=== PATIENT | female | born 1990 | race Caucasian/White ===

== ENCOUNTER 2016-08-09 16:42 | Emergency (ER) | payer MEDICAID ==
[2016-08-09 17:03] VITALS: BMI 31.9
[2016-08-09 17:09] VITALS: BP 111/75; PULSE 92; RESP 18; TEMP 98.1; O2SAT 98
--- NOTE | 2016-08-09 17:55 | ED PDOC ---
Arrival/HPI - General Chief Complaint: Back Pain Time Seen by Provider: 08/09/16 17:00 Historian: Patient - History of Present Illness Time/Duration: Other (2 weeks) Symptom Onset: Gradual Symptom Course: Intermittent Quality: Aching Severity Level: Mild Activities at Onset: Rest Associated Symptoms (Text): 08/09/16 17:53 Patient complains of approximately a two-week history of intermittent right lower back pain. There is no radiation of the pain. No injury or trauma. She is currently completely fine. No abdominal pain nausea vomiting or diarrhea. No dysuria frequency urgency or hematuria. LMP is approximately 2 months ago on June 03. She states that her menstrual cycle is very irregular normally. No numbness tingling or paresthesias. She appears comfortable and in no distress. Appendectomy approximately 3 months ago. Past Medical History - Provider Review Nursing Documentation Reviewed: Yes - Travel History If Yes, travel location?: [facility] - Past History Past History: Non-Contributing - Infectious Disease Hx of Infectious Diseases: None - Cardiac Hx Cardiac Disorders: No Hx Internal Defibrillator: No - Pulmonary Hx Respiratory Disorders: No - Neurological Hx Neurological Disorder: No - HEENT Hx HEENT Disorder: No - Renal Hx Renal Disorder: No - Endocrine/Metabolic Hx Endocrine Disorders: No - Hematological/Oncological Hx Blood Transfusions: No - Integumentary Hx Dermatological Disorder: No - Musculoskeletal/Rheumatological Hx Musculoskeletal Disorders: No Hx Falls: No - Gastrointestinal Hx Gastrointestinal Disorders: No - Genitourinary/Gynecological Hx Sexually Transmitted Diseases: Yes (summer 2015, treated with Abiotics) - Psychiatric Hx Psychophysiologic Disorder: No Hx Substance Use: No - Surgical History Hx Appendectomy: Yes Hx Tonsillectomy: Yes Other/Comment: 1 vaginal - Anesthesia Hx Anesthesia: Yes Hx Anesthesia Reactions: No - Suicidal Assessment Feels Threatened In Home Enviroment: No Family/Social History - Physician Review Nursing Documentation Reviewed: Yes Family/Social History: No Known Family HX, Unknown Family HX Smoking Status: Never Smoked Hx Alcohol Use: Yes (SOCIALLY) Frequency of alcohol use: Socially Hx Substance Use: No Allergies/Home Meds Allergies/Adverse Reactions: Allergies No Known Allergies Allergy (Verified 08/09/16 17:03) Review of Systems - Physician Review All systems were reviewed & negative as marked: Yes - Review of Systems Constitutional: Normal Respiratory: Normal Cardiovascular: Normal Gastrointestinal: Normal Genitourinary Female: Normal Musculoskeletal: Back Pain. absent: Neck Pain Neurological: absent: Headache, Dizziness Physical Exam Vital Signs Reviewed: Yes Vital Signs Temp Pulse Resp BP Pulse Ox 08/09/16 17:07 98.1 F 92 H 18 111/75 98 Temperature: Afebrile Blood Pressure: Normal Pulse: Regular Respiratory Rate: Normal Appearance: Positive for: Well-Appearing, Non-Toxic, Comfortable Pain Distress: None Mental Status: Positive for: Alert and Oriented X 3 - Systems Exam Head: Present: Atraumatic, Normocephalic Pupils: Present: PERRL Extroacular Muscles: Present: EOMI Conjunctiva: Present: Normal Respiratory/Chest: Present: Clear to Auscultation, Good Air Exchange. No: Respiratory Distress, Accessory Muscle Use Cardiovascular: Present: Regular Rate and Rhythm, Normal S1, S2. No: Murmurs Abdomen: Present: Normal Bowel Sounds. No: Tenderness, Distention, Peritoneal Signs, Rebound, Guarding Back: Present: Normal Inspection. No: CVA Tenderness, Midline Tenderness, Paraspinal Tenderness, Pain with Leg Raise Lower Extremity: Present: Normal Inspection. No: Edema, CALF TENDERNESS, NORMAL PULSES, Tenderness, Swelling Neurological: Present: GCS=15, CN II-XII Intact, Speech Normal, Motor Func Grossly Intact Skin: Present: Warm, Dry, Normal Color. No: Rashes Medical Decision Making ED Course and Treatment: 08/09/16 18:03 Impression: A 26 year old female with right lower back pain. Plan: -- Urinalysis -- Reassess and disposition Prior Visits: Notes and results from previous visits were reviewed. Patient last reported to the emergency department on 04/24/16 for evaluation of diffuse abdominal pain. Patient was admitted for abdominal pain and leukocytosis. Progress Notes: 08/09/16 19:14 Urinalysis and urine test are negative.Patient has been holding her baby on her right hip. I suggested that she alternate hips and see if this does not help her back pain. - Lab Interpretations Lab Results: Lab Results 08/09/16 18:00: Urine Color Yellow, Urine Appearance Clear, Urine pH 6.5, Ur Specific [place] 1.025, Urine Protein Negative, Urine Glucose (UA) Negative, Urine Ketones Negative, Urine Blood Negative, Urine Nitrate Negative, Urine Bilirubin Negative, Urine Urobilinogen 0.2, Ur Leukocyte Esterase Trace H, Urine RBC 0 - 2, Urine WBC 0 - 2, Ur Epithelial Cells 1 - 3, Calcium Oxalate Crystal Trace, Urine Bacteria Mod, Urine HCG, Qual Negative - Scribe Statement The provider has reviewed the documentation as recorded by the Bev Mullins Provider Scribe Attestation: All medical record entries made by the Scribe were at my direction and personally dictated by me. I have reviewed the chart and agree that the record accurately reflects my personal performance of the history, physical exam, medical decision making, and the department course for this patient. I have also personally directed, reviewed, and agree with the discharge instructions and disposition. Disposition/Present on Arrival - Present on Arrival Any Indicators Present on Arrival: No History of DVT/PE: No History of Uncontrolled Diabetes: No Urinary Catheter: No History of Decub. Ulcer: No History Surgical Site Infection Following: None - Disposition Have Diagnosis and Disposition been Completed?: Yes Diagnosis: Low back pain Disposition: HOME/ ROUTINE Disposition Time: 19:15 Patient Plan: Discharge Condition: GOOD Discharge Instructions (ExitCare): Acute Low Back Pain (ED) Additional Instructions: Tylenol or Advil as directed on bottle as needed. Follow-up with your PMD. Follow-up in the ER as needed. Referrals: Lelo Holman, [Primary Care Provider] - Follow up with primary
[2016-08-09 18:32] LABS: PH,URINE 6.5 (4.7-8.0); URINE BILIRUBIN NEGATIVE (NEGATIVE); URINE BLOOD NEGATIVE (NEGATIVE); URINE GLUCOSE (UA) NEGATIVE (NEGATIVE); URINE KETONE NEGATIVE (NEGATIVE); URINE LEUKOCYTE ESTERASE TRACE Leu/uL (NEGATIVE); URINE PROTEIN NEGATIVE mg/dL (<30 mg/dL); URINE UROBILINOGEN 0.2 E.U./dL (<1 E.U./dL)
[2016-08-09 18:41] LABS: URINE APPEARANCE CLEAR (CLEAR); URINE COLOR YELLOW (YELLOW)
[2016-08-09 19:09] LABS: URINE BACTERIA MOD (NEG); URINE CALCIUM OXALATE CRYSTALS TRACE /hpf; URINE RBC 0 - 2 /hpf (0-2); URINE WBC 0 - 2 /hpf (0-6)
== END 2016-08-09 19:29 | disposition home or self-care (01) ==
LOC: ED 16:42
DX: M54.5 Low back pain (principal)

== ENCOUNTER 2018-01-26 10:48 | Inpatient (IN) | payer OTHER ==
[2018-01-27] MEDS ORDERED: HYDROmorphone 1 mg/ml PCA 30 ML IV PRN (13:01)
[2018-01-27] MEDS: HYDROmorphone 0.2 mg/ml (30ml) 30 ML IV PRN (13:44)
--- NOTE | 2018-01-27 14:36 | CP.PCM.CON ---
History of Present Illness - History of Present Illness History of Present Illness: Palliative consult requested by Dr eBryl Lee Reason: End of life care 27 year old female with history of widely metastatic pancreatic cancer s/p chemotherapy, pleural effusions, DVT , ascites s/p Tenckoff drain, sepsis who is admitted under [facility] for pain and symptom management. She complains of abdominal /back pain, abdominal distention, nausea, constipation, anorexia. She denies fever, chills, vomiting, diarrhea, chest pain. She is DNR/DNI Social History: Non smoker, no alcohol or drug use. She lives with her mother. She has a two year old daughter. Family History of colon cancer on paternal aunt Review of Systems: As per HPI, 12 point review otherwise negative Past Patient History - Infectious Disease Hx of Infectious Diseases: None - Past Medical History & Family History Past Medical History?: Yes - Past Social History Smoking Status: Never Smoked - CARDIAC Hx Cardiac Disorders: No Hx Internal Defibrillator: No - PULMONARY Hx Respiratory Disorders: No - NEUROLOGICAL Hx Neurological Disorder: No - HEENT Hx HEENT Problems: No - RENAL Hx Chronic Kidney Disease: No - ENDOCRINE/METABOLIC Hx Endocrine Disorders: No - HEMATOLOGICAL/ONCOLOGICAL Hx Blood Transfusions: No - INTEGUMENTARY Hx Dermatological Problems: No - MUSCULOSKELETAL/RHEUMATOLOGICAL Hx Musculoskeletal Disorders: No Hx Falls: No - GASTROINTESTINAL Hx Gastrointestinal Disorders: No - GENITOURINARY/GYNECOLOGICAL Hx Sexually Transmitted Disorders: Yes (summer 2015, treated with Abiotics) - PSYCHIATRIC Hx Psychophysiologic Disorder: No Hx Substance Use: No - SURGICAL HISTORY Hx Appendectomy: Yes Hx Tonsillectomy: Yes Other/Comment: 1 vaginal - ANESTHESIA Hx Anesthesia: Yes Hx Anesthesia Reactions: No Meds Allergies/Adverse Reactions: Allergies Allergy/AdvReac Type Severity Reaction Status Date / Time No Known Allergies Allergy Verified 08/09/16 17:03 - Medications Medications: Current Medications Acetaminophen (Tylenol 650 Mg Supp) 650 mg RC Q4H PRN PRN Reason: Fever >100.4 F Bisacodyl (Dulcolax) 10 mg RC DAILY [facility] Dexamethasone (Decadron Inj) 4 mg IVP DAILY [facility] Hydromorphone HCl (Dilaudid 0.2 Mg/Ml [employer]) 30 mls @ 2.5 mls/hr IV PRN PRN; Protocol PRN Reason: VISUAL MERCHANDISE MANAGER PER MD ORDER Last Admin: 01/27/18 13:44 Dose: 2.5 mls/hr Lactulose (Enulose) 10 gm PO DAILY PRN PRN Reason: Constipation Lorazepam (Ativan) 0.25 mg IVP Q6H PRN; Protocol PRN Reason: Anxiety Olanzapine (Zyprexa) 5 mg PO DAILY [facility]; Protocol Stop: 02/03/18 21:00 Ondansetron HCl (Zofran Inj) 8 mg IVP Q8H PRN PRN Reason: Nausea/Vomiting Pantoprazole Sodium (Protonix Inj) 40 mg IVP DAILY [facility] Physical Exam - Constitutional Appears: Cachectic, Chronically Ill - Eye Exam Eye Exam: Normal appearance, Scleral icterus - ENT Exam ENT Exam: Mucous Membranes Moist - Neck Exam Neck exam: Positive for: Normal Inspection - Respiratory Exam Respiratory Exam: Decreased Breath Sounds, NORMAL BREATHING PATTERN - Cardiovascular Exam Cardiovascular Exam: Tachycardia, +S1, +S2 - GI/Abdominal Exam GI & Abdominal Exam: Distended, Firm, Hypoactive Bowel Sounds, Tenderness Additional comments: right lower abdominal drain patent and intact, left sided lower abdomen wound dr barriga intact - Exam Additional comments: torres - Extremities Exam Additional comments: 2+ edema of both lower extremities - Back Exam Back exam: NORMAL INSPECTION - Neurological Exam Neurological exam: Alert - Skin Skin Exam: Dry, Pallor - Additional Findings Additional findings: palliative performance scale rating 20% Assessment & Plan - Assessment and Plan (Free Text) Assessment: 27 year old female with metastatic pancreatic cancer, ascites, pleural effusions, who is admitted under [facility] for management of intractable abdominal/back, nausea, ascites and constipation Father and mother at bedside. Lengthy discussion with father regarding end of life care. Family understands that patient is terminally ill and is appreciative of teams effort to provide pain and symptom management. Hospice services reviewed, questions answered. Psychosocial support provided Time spent with family in goals of care and end of life discussion, 60 minutes Plan: Goals of care/End of life care Pain: Dilaudid continuos IV 0.5mg/hr and VISUAL MERCHANDISE MANAGER 0.25 mg every 30 minutes. Decadron 4 mg daily IVP. Discontinue Fentanyl patch. Anxiety/agitation: Ativan 025mg as needed Ascites: Drain Tenckoff every other day Constipation: Lactulose daily, Dulcolax RC as needed. Nausea: Zofran 8mg IVP every 8 hr as needed Respiratory congestion: Duonebs tid and prn, O2 as needed Air mattress Soft diet as tolerated
[2018-01-27 14:49] VITALS: BMI 33.2
[2018-01-27] MEDS ORDERED: Albuterol-Ipratrop 3 mg / 0.5 (3 ml) UD IH PRN (15:01)
--- NOTE | 2018-01-27 17:19 | CP.PCM.HP ---
<Ophelia Montano - Last Filed: 01/28/18 06:23> History of Present Illness - History of Present Illness History of Present Illness: Resident Ophelia Montano DO PGY-1 H&P Hospitalist Note for Dr. Lee Pt is a 27 yo F with pmhx metastatic pancreatic cancer to the liver, dx 10/2017, s/p biliary stent placement who presents to the hospital for hospice care. She is currently stating that she is having some nausea, but is denying chest pain, cough, SOB, abdominal pain or dysuria. She states that she is feeling weak and tired and just wants to rest. Pmhx: metastatic pancreatic cancer to the liver, dx 10/2017, s/p biliary stent placement Pshx: Appendectomy All: NKDA Social: Denies Fam: Denies Present on Admission - Present on Admission Any Indicators Present on Admission: No Review of Systems - Review of Systems All systems: reviewed and no additional remarkable complaints except Review of Systems: 12 point ROS negative except as indicated in HPI Past Patient History - Infectious Disease Hx of Infectious Diseases: None - Past Medical History & Family History Past Medical History?: Yes - Past Social History Smoking Status: Never Smoked - CARDIAC Hx Cardiac Disorders: No Hx Internal Defibrillator: No - PULMONARY Hx Respiratory Disorders: No - NEUROLOGICAL Hx Neurological Disorder: No - HEENT Hx HEENT Problems: No - RENAL Hx Chronic Kidney Disease: No - ENDOCRINE/METABOLIC Hx Endocrine Disorders: No - HEMATOLOGICAL/ONCOLOGICAL Hx Blood Transfusions: No - INTEGUMENTARY Hx Dermatological Problems: No - MUSCULOSKELETAL/RHEUMATOLOGICAL Hx Musculoskeletal Disorders: No Hx Falls: No - GASTROINTESTINAL Hx Gastrointestinal Disorders: No - GENITOURINARY/GYNECOLOGICAL Hx Sexually Transmitted Disorders: Yes (summer 2015, treated with Abiotics) - PSYCHIATRIC Hx Psychophysiologic Disorder: No Hx Substance Use: No - SURGICAL HISTORY Hx Appendectomy: Yes Hx Tonsillectomy: Yes Other/Comment: 1 vaginal - ANESTHESIA Hx Anesthesia: Yes Hx Anesthesia Reactions: No Meds Allergies/Adverse Reactions: Allergies Allergy/AdvReac Type Severity Reaction Status Date / Time No Known Allergies Allergy Verified 08/09/16 17:03 Physical Exam - Constitutional Appears: Cachectic, Other (Pt looks fatigued, but is conversant and answers questions appropriately.) - Head Exam Head Exam: ATRAUMATIC, NORMAL INSPECTION, NORMOCEPHALIC - Respiratory Exam Respiratory Exam: Decreased Breath Sounds, NORMAL BREATHING PATTERN. absent: Rales, Rhonchi, Wheezes, Respiratory Distress, Stridor - Cardiovascular Exam Cardiovascular Exam: Tachycardia, +S1, +S2. absent: Gallop, Rubs - GI/Abdominal Exam GI & Abdominal Exam: Firm, Hypoactive Bowel Sounds. absent: Tenderness - Extremities Exam Extremities exam: Positive for: full ROM, normal capillary refill, normal inspection, pedal pulses present. Negative for: calf tenderness, pedal edema - Back Exam Back exam: NORMAL INSPECTION. absent: CVA tenderness (L), CVA tenderness (R) - Neurological Exam Neurological exam: Alert, Oriented x3 - Psychiatric Exam Additional comments: Tired and weak - Skin Skin Exam: Dry, Intact, Normal Color, Warm Results - Vital Signs Recent Vital Signs: Last Vital Signs Temp 98.9 F 01/27/18 14:16 Pulse 109 H 01/27/18 14:16 Resp 22 01/27/18 14:16 BP 101/69 01/27/18 14:16 Pulse Ox Assessment & Plan - Assessment and Plan (Free Text) Assessment: Pt is a 27 yo F with pmhx metastatic pancreatic cancer to the liver, dx 10/2017, s/p biliary stent placement who presents to the hospital for hospice care. Plan: 1) Comfort care measures: - Hospice care consulted and will follow their recs <Juan Miguel Lee - Last Filed: 01/28/18 17:01> Results - Vital Signs Recent Vital Signs: Last Vital Signs Temp 99.3 F 01/28/18 16:34 Pulse 125 H 01/28/18 16:34 Resp 21 01/28/18 16:34 BP 101/67 01/28/18 16:34 Pulse Ox 100 01/28/18 16:34 Attending/Attestation - Attestation I have personally seen and examined this patient.: Yes I have fully participated in the care of the patient.: Yes I have reviewed all pertinent clinical information: Yes Notes (Text): 01/28/18 16:55 Attending note; Patient seen and examined with resident. Patient's father by the bedside. Patient is alert and awake. In mild distress due to pain. Palliative care nurse by the bedside. Compassionate By the bedside. Patient is a27 year old female with pmhx metastatic pancreatic cancer to the liver, dx 10/2017, s/p biliary stent placement who presents to the hospital for hospice care. Patient was transferred from [facility] today for hospice care under compassionate care. Patient was recently diagnosed metastatic pancreatic cancer. Had first line and second line chemotherapy. Patient also had biliary stent. Patient has recurrent ascites and currently has a Tankoff catheter for ascites fluid drainage. we will drain the ascitic fluid twice daily for patient's comfort to decrease abdominal distention. Pain management with Dilaudid SAILMAKER. Continue Colace and MiraLAX as needed for constipation. Ativan when necessary for anxiety. GI prophylaxis with Protonix. Diet as tolerated. Patient is DNI DNR. Poor prognosis discussed with patient's father in detail. Patient and family aware of poor prognosis. Currently on hospice care. 01/28/18 16:59
[2018-01-27] MEDS ORDERED: Albuterol-Ipratrop 3 mg / 0.5 (3 ml) UD IH SCH (20:00)
[2018-01-27] MEDS: Albuterol-Ipratrop 3 mg / 0.5 (3 ml) UD IH SCH (20:03)
[2018-01-28] MEDS: HYDROmorphone 0.2 mg/ml (30ml) 30 ML IV PRN ×3 (00:18→20:42)
[2018-01-28] MEDS: Albuterol-Ipratrop 3 mg / 0.5 (3 ml) UD IH SCH ×6 (02:09→20:13)
[2018-01-28] MEDS ORDERED: POLYETHYLENE GLYCOL 3350 17 GM/Dose PACKET PO SCH (10:00)
[2018-01-28] MEDS: Dexamethasone 4 mg/1 ml IVP SCH (10:55)
[2018-01-28] MEDS ORDERED: guaiFENesin 200 mg/10 ml Syrup UD PO PRN (11:33)
--- NOTE | 2018-01-28 16:06 | CP.PCM.PN ---
<Ophelia Montano - Last Filed: 01/28/18 16:02> Subjective - Date & Time of Evaluation Date of Evaluation: 01/28/18 Time of Evaluation: 16:02 - Subjective Subjective: Resident Ophelia Montano DO PGY-1 Hospitalist Progress Note for Dr. Lee Pt was seen and examined at bedside in the AM. She continues to appear fatigued. She states that she had no acute overnight events, but is having some pain. She denies having fevers, chills, nausea, vomiting, or chest pain. She admits to a bit of SOB or cough which she states is normal for her, though she did not have those issues yesterday. She denies any other acute complaints at this time. Objective - Vital Signs/Intake and Output Vital Signs (last 24 hours): Temp Pulse Resp BP Pulse Ox 98.9 F 109 H 22 101/69 01/27/18 14:16 01/27/18 14:16 01/27/18 14:16 01/27/18 14:16 Intake and Output: 01/28/18 01/28/18 06:59 18:59 Intake Total 30 30 Output Total 300 Balance -270 30 - Medications Medications: Current Medications Acetaminophen (Tylenol 650 Mg Supp) 650 mg RC Q4H PRN PRN Reason: Fever >100.4 F Albuterol/Ipratropium (Duoneb 3 Mg/0.5 Mg (3 Ml) Ud) 3 ml IH [id number] [facility] Last Admin: 01/28/18 15:44 Dose: 3 ml Albuterol/Ipratropium (Duoneb 3 Mg/0.5 Mg (3 Ml) Ud) 3 ml IH TIDRESP PRN PRN Reason: Cough and congestion Bisacodyl (Dulcolax) 10 mg RC DAILY [facility] Last Admin: 01/28/18 11:09 Dose: Not Given Dexamethasone (Decadron Inj) 4 mg IVP DAILY [facility] Last Admin: 01/28/18 10:55 Dose: 4 mg Guaifenesin (Robitussin) 200 mg PO Q4H PRN PRN Reason: Cough and congestion Hydromorphone HCl (Dilaudid 0.2 Mg/Ml [employer]) 30 mls @ 2.5 mls/hr IV PRN PRN; Protocol PRN Reason: FUSE MAKER PER MD ORDER Last Admin: 01/28/18 11:51 Dose: 2.5 mls/hr Lactulose (Enulose) 10 gm PO DAILY PRN PRN Reason: Constipation Last Admin: 01/28/18 11:14 Dose: 10 gm Lorazepam (Ativan) 0.25 mg IVP Q6H PRN; Protocol PRN Reason: Anxiety Olanzapine (Zyprexa) 5 mg PO DAILY [facility]; Protocol Stop: 02/03/18 21:00 Last Admin: 01/28/18 10:56 Dose: 5 mg Ondansetron HCl (Zofran Inj) 8 mg IVP Q8H PRN PRN Reason: Nausea/Vomiting Last Admin: 01/28/18 07:41 Dose: 8 mg Pantoprazole Sodium (Protonix Inj) 40 mg IVP DAILY [facility] Last Admin: 01/28/18 10:55 Dose: 40 mg - Constitutional Appears: Cachectic, Chronically Ill, Other (Fatigued) - Head Exam Head Exam: ATRAUMATIC, NORMAL INSPECTION, NORMOCEPHALIC - Eye Exam Eye Exam: EOMI, Normal appearance Pupil Exam: NORMAL ACCOMODATION - Respiratory Exam Respiratory Exam: Decreased Breath Sounds. absent: Accessory Muscle Use, Chest Wall Tenderness, Prolonged Expiratory Phase, Rhonchi, Wheezes, Respiratory Distress, Stridor - Cardiovascular Exam Cardiovascular Exam: RRR, +S1, +S2. absent: Rubs - GI/Abdominal Exam GI & Abdominal Exam: Firm, Hypoactive Bowel Sounds. absent: Tenderness - Back Exam Back Exam: NORMAL INSPECTION. absent: CVA tenderness (L), CVA tenderness (R) - Neurological Exam Neurological Exam: Alert, Awake, Oriented x3 - Psychiatric Exam Psychiatric exam: Flat Affect - Skin Skin Exam: Dry, Intact, Warm Assessment and Plan - Assessment and Plan (Free Text) Assessment: Pt is a 27 yo F with pmhx metastatic pancreatic cancer to the liver, dx 10/2017, s/p biliary stent placement who presents to the hospital for hospice care. Plan: 1) Comfort care measures: - Hospice care consulted and will follow their recs <Juan Miguel Lee - Last Filed: 01/28/18 17:03> Objective - Vital Signs/Intake and Output Vital Signs (last 24 hours): Temp Pulse Resp BP Pulse Ox 99.3 F 125 H 21 101/67 100 01/28/18 16:34 01/28/18 16:34 01/28/18 16:34 01/28/18 16:34 01/28/18 16:34 Intake and Output: 01/28/18 01/28/18 06:59 18:59 Intake Total 30 30 Output Total 300 Balance -270 30 - Medications Medications: Current Medications Acetaminophen (Tylenol 650 Mg Supp) 650 mg RC Q4H PRN PRN Reason: Fever >100.4 F Albuterol/Ipratropium (Duoneb 3 Mg/0.5 Mg (3 Ml) Ud) 3 ml IH [id number] [facility] Last Admin: 01/28/18 15:44 Dose: 3 ml Albuterol/Ipratropium (Duoneb 3 Mg/0.5 Mg (3 Ml) Ud) 3 ml IH TIDRESP PRN PRN Reason: Cough and congestion Bisacodyl (Dulcolax) 10 mg RC DAILY [facility] Last Admin: 01/28/18 11:09 Dose: Not Given Dexamethasone (Decadron Inj) 4 mg IVP DAILY [facility] Last Admin: 01/28/18 10:55 Dose: 4 mg Guaifenesin (Robitussin) 200 mg PO Q4H PRN PRN Reason: Cough and congestion Hydromorphone HCl (Dilaudid 0.2 Mg/Ml [employer]) 30 mls @ 2.5 mls/hr IV PRN PRN; Protocol PRN Reason: FUSE MAKER PER MD ORDER Last Admin: 01/28/18 11:51 Dose: 2.5 mls/hr Lactulose (Enulose) 10 gm PO DAILY PRN PRN Reason: Constipation Last Admin: 01/28/18 11:14 Dose: 10 gm Lorazepam (Ativan) 0.25 mg IVP Q6H PRN; Protocol PRN Reason: Anxiety Olanzapine (Zyprexa) 5 mg PO DAILY [facility]; Protocol Stop: 02/03/18 21:00 Last Admin: 01/28/18 10:56 Dose: 5 mg Ondansetron HCl (Zofran Inj) 8 mg IVP Q8H PRN PRN Reason: Nausea/Vomiting Last Admin: 01/28/18 07:41 Dose: 8 mg Pantoprazole Sodium (Protonix Inj) 40 mg IVP DAILY [facility] Last Admin: 01/28/18 10:55 Dose: 40 mg Attending/Attestation - Attestation I have personally seen and examined this patient.: Yes I have fully participated in the care of the patient.: Yes I have reviewed all pertinent clinical information, including history, physical exam and plan: Yes Notes (Text): 01/28/18 17:01 Attending note; Patient seen and examined with resident. Patient's father by the bedside. Patient is alert and awake. Generally fatigued. Able to eat a little. Denies any nausea, vomiting. Patient is a27 year old female with pmhx metastatic pancreatic cancer to the liver, dx 10/2017, s/p biliary stent placement who presents to the hospital for hospice care. Patient was transferred from [facility] today for hospice care under compassionate care. Patient was recently diagnosed metastatic pancreatic cancer. Failed therapy. Patient has recurrent ascites and currently has a Tankoff catheter for ascites fluid drainage. we will drain the ascitic fluid twice daily for patient's comfort to decrease abdominal distention. Pain management with Dilaudid FUSE MAKER. Continue Colace and lactulose needed for constipation. Ativan when necessary for anxiety. GI prophylaxis with Protonix. Diet as tolerated. Patient is DNI DNR. Poor prognosis discussed with patient's father in detail. Patient and family aware of poor prognosis. Currently on hospice care.
[2018-01-29] MEDS: Albuterol-Ipratrop 3 mg / 0.5 (3 ml) UD IH SCH ×8 (01:23→23:06)
[2018-01-29] MEDS: HYDROmorphone 0.2 mg/ml (30ml) 30 ML IV PRN ×3 (06:28→23:55)
[2018-01-29] MEDS: Dexamethasone 4 mg/1 ml IVP SCH (09:39)
--- NOTE | 2018-01-29 14:00 | CP.PCM.PN ---
<Ophelia Montano - Last Filed: 01/29/18 14:04> Subjective - Date & Time of Evaluation Date of Evaluation: 01/29/18 Time of Evaluation: 13:56 - Subjective Subjective: Resident Ophelia Montano DO PGY-1 Hospitalist Progress Note for Dr. Lee Pt was seen and examined at bedside in the AM. She continues to appear fatigued. She states that she had 3 bouts of non-bloody emesis overnight and is having coty e pain. She denies having fevers, chills, or chest pain. She admits to a bit of SOB or cough and some nausea which is still persisting. She states that she can only eat a little bit before she gets full. She denies any other acute complaints at this time. Objective - Vital Signs/Intake and Output Vital Signs (last 24 hours): Temp Pulse Resp BP Pulse Ox 98.5 F 125 H 20 101/69 98 01/29/18 08:21 01/29/18 08:21 01/29/18 08:21 01/29/18 08:21 01/29/18 08:21 Intake and Output: 01/29/18 01/29/18 06:59 18:59 Intake Total Output Total Balance - Medications Medications: Current Medications Acetaminophen (Tylenol 650 Mg Supp) 650 mg RC Q4H PRN PRN Reason: Fever >100.4 F Albuterol/Ipratropium (Duoneb 3 Mg/0.5 Mg (3 Ml) Ud) 3 ml IH [id number] [facility] Last Admin: 01/29/18 13:48 Dose: 3 ml Albuterol/Ipratropium (Duoneb 3 Mg/0.5 Mg (3 Ml) Ud) 3 ml IH TIDRESP PRN PRN Reason: Cough and congestion Bisacodyl (Dulcolax) 10 mg RC DAILY [facility] Last Admin: 01/29/18 09:39 Dose: Not Given Dexamethasone (Decadron Inj) 4 mg IVP DAILY [facility] Last Admin: 01/29/18 09:39 Dose: 4 mg Guaifenesin (Robitussin) 200 mg PO Q4H PRN PRN Reason: Cough and congestion Hydromorphone HCl (Dilaudid 0.2 Mg/Ml Logistics Engineering Manager) 30 mls @ 2.5 mls/hr IV PRN PRN; Protocol PRN Reason: CANOE BUILDER PER MD ORDER Last Admin: 01/29/18 06:28 Dose: 2.5 mls/hr Lactulose (Enulose) 10 gm PO DAILY PRN PRN Reason: Constipation Last Admin: 01/28/18 11:14 Dose: 10 gm Lorazepam (Ativan) 0.5 mg IVP Q6H [facility]; Protocol Last Admin: 01/29/18 13:16 Dose: 0.5 mg Olanzapine (Zyprexa) 5 mg PO DAILY [facility]; Protocol Stop: 02/03/18 21:00 Last Admin: 01/29/18 09:41 Dose: 5 mg Ondansetron HCl (Zofran Inj) 8 mg IVP Q8H PRN PRN Reason: Nausea/Vomiting Last Admin: 01/29/18 09:56 Dose: 8 mg Pantoprazole Sodium (Protonix Inj) 40 mg IVP DAILY [facility] Last Admin: 01/29/18 09:40 Dose: 40 mg - Constitutional Appears: Cachectic, Chronically Ill, Other (Fatigued) - Head Exam Head Exam: ATRAUMATIC, NORMAL INSPECTION, NORMOCEPHALIC - Eye Exam Eye Exam: EOMI, Normal appearance, PERRL - Respiratory Exam Respiratory Exam: Decreased Breath Sounds. absent: Rales, Rhonchi, Wheezes - Cardiovascular Exam Cardiovascular Exam: Tachycardia, +S1, +S2. absent: Gallop, Rubs - GI/Abdominal Exam GI & Abdominal Exam: Firm, Hypoactive Bowel Sounds. absent: Tenderness Additional comments: Tankoff cath in place and functioning, with no surrounding erythema or drainage. - Back Exam Back Exam: NORMAL INSPECTION. absent: CVA tenderness (L), CVA tenderness (R) - Neurological Exam Neurological Exam: Alert, Awake, Oriented x3 - Psychiatric Exam Psychiatric exam: Flat Affect Additional comments: tired appearing - Skin Skin Exam: Dry, Intact, Normal Color, Warm Assessment and Plan - Assessment and Plan (Free Text) Assessment: Pt is a 27 yo F with pmhx metastatic pancreatic cancer to the liver, dx 10/2017, s/p biliary stent placement who presents to the hospital for hospice care. Pt was transferred from [facility] for hospice care under compassionate care. Pt was recently diagnosed metastatic pancreatic cancer. Failed therapy. Plan: 1) Comfort care measures: - Pt has Tankoff catheter in place to help drain ascitic fluid buildup - Fluid will be drained 2x/day to help with comfort - Managed on Dilaudid CANOE BUILDER pump - Will continue to monitor pain and may increase pump doseage tomorrow if pain control not adequate - Cont colace and lactulose PRN for constipation - Ativan for anxiety - Zofran for nausea PRN - GI ppx: Protonix - Diet as tolerated - DNR/DNI - Discussed prognosis with family who express understanding. Case seen and discussed with Dr. Lee <Juan Miguel Lee - Last Filed: 01/29/18 14:21> Objective - Vital Signs/Intake and Output Vital Signs (last 24 hours): Temp Pulse Resp BP Pulse Ox 98.5 F 125 H 20 101/69 98 01/29/18 08:21 01/29/18 08:21 01/29/18 08:21 01/29/18 08:21 01/29/18 08:21 Intake and Output: 01/29/18 01/29/18 06:59 18:59 Intake Total Output Total Balance - Medications Medications: Current Medications Acetaminophen (Tylenol 650 Mg Supp) 650 mg RC Q4H PRN PRN Reason: Fever >100.4 F Albuterol/Ipratropium (Duoneb 3 Mg/0.5 Mg (3 Ml) Ud) 3 ml IH [id number] [facility] Last Admin: 01/29/18 13:48 Dose: 3 ml Albuterol/Ipratropium (Duoneb 3 Mg/0.5 Mg (3 Ml) Ud) 3 ml IH TIDRESP PRN PRN Reason: Cough and congestion Bisacodyl (Dulcolax) 10 mg RC DAILY [facility] Last Admin: 01/29/18 09:39 Dose: Not Given Dexamethasone (Decadron Inj) 4 mg IVP DAILY [facility] Last Admin: 01/29/18 09:39 Dose: 4 mg Guaifenesin (Robitussin) 200 mg PO Q4H PRN PRN Reason: Cough and congestion Hydromorphone HCl (Dilaudid 0.2 Mg/Ml Logistics Engineering Manager) 30 mls @ 2.5 mls/hr IV PRN PRN; Protocol PRN Reason: CANOE BUILDER PER MD ORDER Last Admin: 01/29/18 06:28 Dose: 2.5 mls/hr Lactulose (Enulose) 10 gm PO DAILY PRN PRN Reason: Constipation Last Admin: 01/28/18 11:14 Dose: 10 gm Lorazepam (Ativan) 0.5 mg IVP Q6H [facility]; Protocol Last Admin: 01/29/18 13:16 Dose: 0.5 mg Olanzapine (Zyprexa) 5 mg PO DAILY [facility]; Protocol Stop: 02/03/18 21:00 Last Admin: 01/29/18 09:41 Dose: 5 mg Ondansetron HCl (Zofran Inj) 8 mg IVP Q8H PRN PRN Reason: Nausea/Vomiting Last Admin: 01/29/18 09:56 Dose: 8 mg Pantoprazole Sodium (Protonix Inj) 40 mg IVP DAILY [facility] Last Admin: 01/29/18 09:40 Dose: 40 mg Attending/Attestation - Attestation I have personally seen and examined this patient.: Yes I have fully participated in the care of the patient.: Yes I have reviewed all pertinent clinical information, including history, physical exam and plan: Yes Notes (Text): 01/29/18 14:20 Attending note; Patient seen and examined with resident. Patient's father by the bedside. Patient is alert and awake. Generally fatigued. Able to eat a little. Had nausea an vomiting this morning. Zofran ordered. Patient is a 27 year old female with pmhx metastatic pancreatic cancer to the liver, dx 10/2017, s/p biliary stent placement who presents to the hospital for hospice care. Patient was transferred from [facility] for hospice care under compassionate care. Patient has recurrent ascites and currently has a Tankoff catheter for ascites fluid drainage. drain the ascitic fluid twice daily for patient's comfort to decrease abdominal distention. Pain management with Dilaudid CANOE BUILDER. adjust dosage as needed, Continue Colace and lactulose needed for constipation. Ativan when necessary for anxiety. GI prophylaxis with Protonix. Diet as tolerated. Patient is DNI DNR. Poor prognosis discussed with patient's father in detail. Patient and family aware of poor prognosis. Currently on hospice care.
[2018-01-30] MEDS: Albuterol-Ipratrop 3 mg / 0.5 (3 ml) UD IH SCH ×6 (04:00→23:54)
[2018-01-30] MEDS: Dexamethasone 4 mg/1 ml IVP SCH (09:32)
[2018-01-30] MEDS: HYDROmorphone 0.2 mg/ml (30ml) 30 ML IV PRN ×4 (09:33→21:30)
--- NOTE | 2018-01-30 12:16 | CP.PCM.PN ---
Subjective - Date & Time of Evaluation Date of Evaluation: 01/30/18 Time of Evaluation: 11:30 - Subjective Subjective: Somnolent, occasional moaning, tachypneic /irregular respirations, tachycardia Objective - Vital Signs/Intake and Output Vital Signs (last 24 hours): Temp Pulse Resp BP Pulse Ox 98 F 139 H 21 106/70 97 01/30/18 08:00 01/30/18 08:00 01/30/18 08:00 01/30/18 08:00 01/30/18 08:00 Intake and Output: 01/30/18 01/30/18 06:59 18:59 Intake Total 30 30 Output Total 800 Balance -770 30 - Medications Medications: Current Medications Acetaminophen (Tylenol 650 Mg Supp) 650 mg RC Q4H PRN PRN Reason: Fever >100.4 F Last Admin: 01/29/18 22:34 Dose: 650 mg Albuterol/Ipratropium (Duoneb 3 Mg/0.5 Mg (3 Ml) Ud) 3 ml IH [id number] [facility] Last Admin: 01/30/18 11:15 Dose: Not Given Albuterol/Ipratropium (Duoneb 3 Mg/0.5 Mg (3 Ml) Ud) 3 ml IH TIDRESP PRN PRN Reason: Cough and congestion Bisacodyl (Dulcolax) 10 mg RC DAILY [facility] Last Admin: 01/30/18 09:30 Dose: Not Given Dexamethasone (Decadron Inj) 4 mg IVP DAILY [facility] Last Admin: 01/30/18 09:32 Dose: 4 mg Guaifenesin (Robitussin) 200 mg PO Q4H PRN PRN Reason: Cough and congestion Hydromorphone HCl (Dilaudid 0.2 Mg/Ml Hot Plate Plywood Press Laborer) 30 mls @ 2.5 mls/hr IV PRN PRN; Protocol PRN Reason: RADIO INTERFERENCE INVESTIGATOR PER MD ORDER Last Admin: 01/30/18 11:51 Dose: 0.83 mg/hr, 5 mls/hr Lactulose (Enulose) 10 gm PO DAILY PRN PRN Reason: Constipation Last Admin: 01/28/18 11:14 Dose: 10 gm Lorazepam (Ativan) 0.5 mg IVP Q6H [facility]; Protocol Last Admin: 01/30/18 11:47 Dose: 0.5 mg Olanzapine (Zyprexa) 5 mg PO DAILY [facility]; Protocol Stop: 02/03/18 21:00 Last Admin: 01/30/18 09:29 Dose: Not Given Ondansetron HCl (Zofran Inj) 8 mg IVP Q8H PRN PRN Reason: Nausea/Vomiting Last Admin: 01/29/18 09:56 Dose: 8 mg Pantoprazole Sodium (Protonix Inj) 40 mg IVP DAILY [facility] Last Admin: 01/30/18 09:31 Dose: 40 mg - Constitutional Appears: Cachectic, Chronically Ill - Eye Exam Additional comments: sluggish response - ENT Exam ENT Exam: Mucous Membranes Dry - Respiratory Exam Respiratory Exam: Accessory Muscle Use, Decreased Breath Sounds Additional comments: tachypnea - GI/Abdominal Exam GI & Abdominal Exam: Distended, Firm, Hypoactive Bowel Sounds - Extremities Exam Additional comments: 2 + bilateral lower extremity edema - Neurological Exam Neurological Exam: Altered - Skin Skin Exam: Dry, Pallor, Warm Assessment and Plan - Assessment and Plan (Free Text) Assessment: 27 year old female with widely metastatic pancreatic cancer who is admitted under [facility] hospice care for pain and symptom management. Patient father at bedside.Signs of impeding explained. Psychosocial support and end of life counseling provided. Time spent with family, 20 minutes Plan: End of life counseling Increase Dilaudid continuous infusion dosing to 1mg/hr. Ativan 0.5 mg IV as needed for anxiety /agitation
--- NOTE | 2018-01-30 16:01 | CP.PCM.PN ---
<Ophelia Montano - Last Filed: 01/30/18 15:58> Subjective - Date & Time of Evaluation Date of Evaluation: 01/30/18 Time of Evaluation: 15:58 - Subjective Subjective: Resident Ophelia Montano DO PGY-1 Hospitalist Progress Note for Dr. Lee Pt was seen and examined at bedside in the AM. She continues to appear fatigued. She states that her nausea is improving and has not had any vomiting since yeste rday morning. She states that she felt febrile this AM, but is better now. She admits to a bit of SOB or cough and some nausea which is still persisting. She states that she can only eat a little bit before she gets full. She denies any other acute complaints at this time. Objective - Vital Signs/Intake and Output Vital Signs (last 24 hours): Temp Pulse Resp BP Pulse Ox 98 F 139 H 21 106/70 97 01/30/18 08:00 01/30/18 08:00 01/30/18 08:00 01/30/18 08:00 01/30/18 08:00 Intake and Output: 01/30/18 01/30/18 06:59 18:59 Intake Total 30 30 Output Total 800 Balance -770 30 - Medications Medications: Current Medications Acetaminophen (Tylenol 650 Mg Supp) 650 mg RC Q4H PRN PRN Reason: Fever >100.4 F Last Admin: 01/29/18 22:34 Dose: 650 mg Albuterol/Ipratropium (Duoneb 3 Mg/0.5 Mg (3 Ml) Ud) 3 ml IH [id number] [facility] Last Admin: 01/30/18 11:15 Dose: Not Given Bisacodyl (Dulcolax) 10 mg RC DAILY [facility] Last Admin: 01/30/18 09:30 Dose: Not Given Dexamethasone (Decadron Inj) 4 mg IVP DAILY [facility] Last Admin: 01/30/18 09:32 Dose: 4 mg Guaifenesin (Robitussin) 200 mg PO Q4H PRN PRN Reason: Cough and congestion Hydromorphone HCl (Dilaudid 0.2 Mg/Ml Product Support Representative) 30 mls @ 2.5 mls/hr IV PRN PRN; Protocol PRN Reason: SLEEVE SEWER PER MD ORDER Last Admin: 11/05/18 11:51 Dose: 0.83 mg/hr, 5 mls/hr Lactulose (Enulose) 10 gm PO DAILY PRN PRN Reason: Constipation Last Admin: 01/28/18 11:14 Dose: 10 gm Lorazepam (Ativan) 0.5 mg IVP Q6H [facility]; Protocol Last Admin: 01/30/18 11:47 Dose: 0.5 mg Ondansetron HCl (Zofran Inj) 8 mg IVP Q8H PRN PRN Reason: Nausea/Vomiting Last Admin: 01/29/18 09:56 Dose: 8 mg - Constitutional Appears: Cachectic, Chronically Ill, Other (Fatigued) - Head Exam Head Exam: ATRAUMATIC, NORMAL INSPECTION, NORMOCEPHALIC - Eye Exam Eye Exam: EOMI, Normal appearance, PERRL - Respiratory Exam Respiratory Exam: Decreased Breath Sounds. absent: Rales, Rhonchi, Wheezes - Cardiovascular Exam Cardiovascular Exam: Tachycardia, +S1, +S2. absent: Gallop, Rubs - GI/Abdominal Exam GI & Abdominal Exam: Firm, Normal Bowel Sounds. absent: Bruit, Guarding, Rigid, Tenderness Additional comments: Tankoff cath in place and functioning, with no surrounding erythema or drainage. - Neurological Exam Neurological Exam: Alert, Awake, Oriented x3 - Psychiatric Exam Psychiatric exam: Flat Affect Additional comments: fatigued - Skin Skin Exam: Dry, Intact, Normal Color, Warm Assessment and Plan - Assessment and Plan (Free Text) Assessment: Pt is a 27 yo F with pmhx metastatic pancreatic cancer to the liver, dx 10/2017, s/p biliary stent placement who presents to the hospital for hospice care. Pt was transferred from [facility] for hospice care under compassionate care. Pt was recently diagnosed metastatic pancreatic cancer. Failed therapy. Plan: 1) Comfort care measures: - Pt has Tankoff catheter in place to help drain ascitic fluid buildup - Fluid will be drained 2x/day to help with comfort - Managed on Dilaudid SLEEVE SEWER pump - Will continue to monitor pain and may increase pump doseage tomorrow if pain control not adequate - Cont colace and lactulose PRN for constipation - Ativan for anxiety - Zofran for nausea PRN - GI ppx: Protonix - Diet as tolerated - DNR/DNI - Discussed prognosis with family who express understanding. Case seen and discussed with Dr. Adelita Montano DO PGY1 <JluisIlda R - Last Filed: 01/31/18 13:00> Objective - Vital Signs/Intake and Output Vital Signs (last 24 hours): Temp Pulse Resp BP Pulse Ox 102.8 F H 90 20 142/104 H 96 01/31/18 05:15 01/30/18 19:10 01/30/18 19:10 01/30/18 19:10 01/30/18 19:10 Intake and Output: 01/31/18 01/31/18 06:59 18:59 Intake Total 180 Output Total 400 Balance -220 - Medications Medications: Current Medications Acetaminophen (Tylenol 650 Mg Supp) 650 mg RC Q4H PRN PRN Reason: Fever >100.4 F Last Admin: 01/31/18 05:15 Dose: 650 mg Albuterol/Ipratropium (Duoneb 3 Mg/0.5 Mg (3 Ml) Ud) 3 ml IH [id number] [facility] Last Admin: 01/31/18 11:13 Dose: Not Given Bisacodyl (Dulcolax) 10 mg RC DAILY [facility] Last Admin: 01/31/18 09:24 Dose: Not Given Dexamethasone (Decadron Inj) 4 mg IVP DAILY [facility] Last Admin: 01/31/18 09:24 Dose: 4 mg Guaifenesin (Robitussin) 200 mg PO Q4H PRN PRN Reason: Cough and congestion Hydromorphone HCl (Dilaudid-Hp 1 Mg/Ml Product Support Representative) 30 mg IV PRN PRN PRN Reason: Pain, severe (8-10) Lactulose (Enulose) 10 gm PO DAILY PRN PRN Reason: Constipation Last Admin: 01/28/18 11:14 Dose: 10 gm Lorazepam (Ativan) 1 mg IVP Q6H [facility]; Protocol Last Admin: 01/31/18 08:24 Dose: 1 mg Ondansetron HCl (Zofran Inj) 8 mg IVP Q8H PRN PRN Reason: Nausea/Vomiting Last Admin: 01/29/18 09:56 Dose: 8 mg Attending/Attestation - Attestation I have personally seen and examined this patient.: Yes I have fully participated in the care of the patient.: Yes I have reviewed all pertinent clinical information, including history, physical exam and plan: Yes Notes (Text): Patient seen and examined by me with resident 10:30AM on 01/30/18 with resident. Case including HPI, physical exam, and assessment and plan discussed with resident. Agree with above with following additions/corrections. Patient is a 27 year old female with past medical history significant for pancreatic cancer with mets to the liver s/p biliary stent placement now with Tankoff catheter that presented to the hospital for hospice care from [facility] under [facility]. Patient sleeping. Intermittently opens eyes. Family at bedside. Appears comfortable. Physical exam: General: Resting, appears comfortable. HEENT: Normocephalic atraumatic. Pupils equal reactive. No scleral icterus. Cardiovascular: Tachycardic No murmurs, rubs, or gallops appreciated Pulmonary: Mild agonal breathing. Auscultated anteriorly. No rhonchi, rales, or wheezing appreciated Gastrointestinal: Soft. Distended. Positive bowel sounds all 4 quadrants. Musculoskeletal: Moves all extremities Dermatologic: Skin warm and dry. Assessment and Plan: Patient is a 27 year old female with past medical history significant for pancreatic cancer with mets to the liver s/p biliary stent placement now with Tankoff catheter that presented to the hospital for hospice care from [facility] under [facility]. 1. Pancreatic cancer with metastasis to the liver. Continue with hospice care. Continue dilaudid SLEEVE SEWER. Continue dexamethasone. Continue nebulizer treatments as needed. Continue robitussin as needed. Continue Colace and lactulose as needed for constipation. Continue Ativan and Zyprexa. Continue Zofran as needed. 2. Fever. Tylenol as needed. Continue care as above. 3. Patient is DNR/DNI on inpatient hospice care. Palliative care following.
[2018-01-30 19:38] VITALS: BP 142/104; PULSE 90; RESP 20; O2SAT 96
[2018-01-30] MEDS ORDERED: HYDROmorphone 0.5 mg/0.5 ml ISec IVP STA (22:53)
[2018-01-31] MEDS: HYDROmorphone 0.2 mg/ml (30ml) 30 ML IV PRN (02:46)
[2018-01-31] MEDS ORDERED: HYDROmorphone 1 mg/ml ISec IVP STA (04:30)
[2018-01-31] MEDS: Albuterol-Ipratrop 3 mg / 0.5 (3 ml) UD IH SCH ×7 (04:57→21:07)
[2018-01-31] MEDS ORDERED: HYDROmorphone 1 mg/ml PCA 30 ML IV PRN ×3 (05:48→20:39)
[2018-01-31] MEDS ORDERED: HYDROmorphone 1 mg/ml PCA IV PRN (08:16)
[2018-01-31] MEDS ORDERED: HYDROmorphone 2 mg/ml ISec IVP STA (09:10)
[2018-01-31] MEDS: Dexamethasone 4 mg/1 ml IVP SCH (09:24)
--- NOTE | 2018-01-31 09:58 | CP.PCM.PN ---
Subjective - Date & Time of Evaluation Date of Evaluation: 01/31/18 Time of Evaluation: 09:00 - Subjective Subjective: Tachypnea, tachycardia, febrile, moaning, cries out in pain when repositioned Objective - Vital Signs/Intake and Output Vital Signs (last 24 hours): Temp Pulse Resp BP Pulse Ox 102.8 F H 90 20 142/104 H 96 01/31/18 05:15 01/30/18 19:10 01/30/18 19:10 01/30/18 19:10 01/30/18 19:10 Intake and Output: 01/31/18 01/31/18 06:59 18:59 Intake Total 180 Output Total 400 Balance -220 - Medications Medications: Current Medications Acetaminophen (Tylenol 650 Mg Supp) 650 mg RC Q4H PRN PRN Reason: Fever >100.4 F Last Admin: 01/31/18 05:15 Dose: 650 mg Albuterol/Ipratropium (Duoneb 3 Mg/0.5 Mg (3 Ml) Ud) 3 ml IH [id number] Last Admin: 01/31/18 07:40 Dose: Not Given Bisacodyl (Dulcolax) 10 mg RC DAILY [facility] Last Admin: 01/31/18 09:24 Dose: Not Given Dexamethasone (Decadron Inj) 4 mg IVP DAILY [facility] Last Admin: 01/31/18 09:24 Dose: 4 mg Guaifenesin (Robitussin) 200 mg PO Q4H PRN PRN Reason: Cough and congestion Hydromorphone HCl (Dilaudid-Hp 1 Mg/Ml Tractor Mechanic Apprentice) 30 mg IV PRN PRN PRN Reason: Pain, severe (8-10) Lactulose (Enulose) 10 gm PO DAILY PRN PRN Reason: Constipation Last Admin: 01/28/18 11:14 Dose: 10 gm Lorazepam (Ativan) 1 mg IVP Q6H [facility]; Protocol Last Admin: 01/31/18 08:24 Dose: 1 mg Ondansetron HCl (Zofran Inj) 8 mg IVP Q8H PRN PRN Reason: Nausea/Vomiting Last Admin: 01/29/18 09:56 Dose: 8 mg - Constitutional Appears: Cachectic, Chronically Ill - Eye Exam Eye Exam: Scleral icterus - ENT Exam ENT Exam: Mucous Membranes Dry - Respiratory Exam Respiratory Exam: Accessory Muscle Use, Decreased Breath Sounds - Cardiovascular Exam Cardiovascular Exam: Tachycardia - GI/Abdominal Exam GI & Abdominal Exam: Distended, Firm, Diminished Bowel Sounds - Extremities Exam Extremities Exam: Normal Capillary Refill Additional comments: 3 + bilateral lower extremity edema - Skin Skin Exam: Dry, Pallor Assessment and Plan - Assessment and Plan (Free Text) Assessment: 27 year old female with widely metastatic pancreatic cancer who is admitted to [facility] for management of intractable pain, nausea, fever Family at beside, signs and symptoms of impending explained. Psychosocial support provided. Time spent with family 40 minutes Plan: End of life counseling Increase Ativan to 1mg IVP every 6 hours Dilaudid 2mg IVP STAT, increase continuos Dilaudid to 2 mg/hr , dosing, BREASTFEEDING PROGRAM COORDINATOR 0.25mg every 30 minutes. Reglan 10 mg IVP now, then scheduled BID. Tylenol 650 mg RC for fever
[2018-01-31 18:17] VITALS: TEMP 100
--- NOTE | 2018-01-31 19:04 | CP.PCM.PN ---
Subjective - Date & Time of Evaluation Date of Evaluation: 01/31/18 Time of Evaluation: 19:02 - Subjective Subjective: Resident Ophelia Montano DO PGY-1 Hospitalist Progress Note for Dr. Adelita Bazzi Pt was seen and examined at bedside in the AM. She continues to appear fatigued. Per father, pt is no longer eating. Pt was having some pain yesterday, but now is resting comfortably. Pt was febrile overnight. Objective - Vital Signs/Intake and Output Vital Signs (last 24 hours): Temp Pulse Resp BP Pulse Ox 100 F H 90 20 142/104 H 96 01/31/18 18:00 01/30/18 19:10 01/30/18 19:10 01/30/18 19:10 01/30/18 19:10 Intake and Output: 01/31/18 02/01/18 18:59 06:59 Intake Total 80 Output Total 1600 Balance -1520 - Medications Medications: Current Medications Acetaminophen (Tylenol 650 Mg Supp) 650 mg RC Q4H PRN PRN Reason: Fever >100.4 F Last Admin: 01/31/18 15:17 Dose: 650 mg Albuterol/Ipratropium (Duoneb 3 Mg/0.5 Mg (3 Ml) Ud) 3 ml IH [id number] [facility] Last Admin: 01/31/18 15:52 Dose: Not Given Bisacodyl (Dulcolax) 10 mg RC DAILY [facility] Last Admin: 01/31/18 09:24 Dose: Not Given Dexamethasone (Decadron Inj) 4 mg IVP DAILY [facility] Last Admin: 01/31/18 09:24 Dose: 4 mg Guaifenesin (Robitussin) 200 mg PO Q4H PRN PRN Reason: Cough and congestion Hydromorphone HCl (Dilaudid-Hp 1 Mg/Ml Industrial Paramedic) 30 mg IV PRN PRN PRN Reason: Pain, severe (8-10) Lactulose (Enulose) 10 gm PO DAILY PRN PRN Reason: Constipation Last Admin: 01/28/18 11:14 Dose: 10 gm Lorazepam (Ativan) 1 mg IVP Q6H [facility]; Protocol Last Admin: 01/31/18 13:27 Dose: 1 mg Ondansetron HCl (Zofran Inj) 8 mg IVP Q8H PRN PRN Reason: Nausea/Vomiting Last Admin: 01/29/18 09:56 Dose: 8 mg - Constitutional Appears: Cachectic, Chronically Ill, Other (fatigued looking but is currently resting comfortably) - Head Exam Head Exam: ATRAUMATIC, NORMAL INSPECTION, NORMOCEPHALIC - Eye Exam Eye Exam: EOMI, Normal appearance, PERRL - Respiratory Exam Respiratory Exam: absent: Rales, Rhonchi, Wheezes, NORMAL BREATHING PATTERN (mild agonal breathing) - Cardiovascular Exam Cardiovascular Exam: Tachycardia, +S1, +S2. absent: Gallop, Rubs - GI/Abdominal Exam GI & Abdominal Exam: Distended, Firm, Normal Bowel Sounds. absent: Tenderness - Neurological Exam Additional comments: Pt is asleep and resting comfortably - Skin Skin Exam: Dry, Intact, Warm Assessment and Plan - Assessment and Plan (Free Text) Assessment: Pt is a 27 yo F with pmhx metastatic pancreatic cancer to the liver, dx 10/2017, s/p biliary stent placement who presents to the hospital for hospice care. Pt was transferred from [facility] for hospice care under compassionate care. Pt was recently diagnosed metastatic pancreatic cancer. Failed therapy Plan: 1) Comfort care measures: - Pt has Tankoff catheter in place to help drain ascitic fluid buildup - Fluid will be drained 2x/day to help with comfort - Managed on Dilaudid HARP ACTION ASSEMBLER pump - Will continue to monitor pain and may increase pump doseage tomorrow if pain control not adequate - Cont colace and lactulose PRN for constipation - Tylenol PRN for fevers - Ativan for anxiety - Zofran for nausea PRN - GI ppx: Protonix - Diet as tolerated - DNR/DNI - Discussed prognosis with family who express understanding. Case seen and discussed with Dr. Adelita Montano DO PGY1
[2018-01-31] MEDS ORDERED: HYDROmorphone 2 mg/ml ISec IVP ONE (21:19)
--- NOTE | 2018-01-31 23:10 | CP.PCM.PRO ---
Addendum entered and electronically signed by Raghu Sorensen DO 01/31/18 23:50: Correction: time of pronouncement of was 22:52, correct time is in EDRS. Addendum entered and electronically signed by Raghu Sorensen DO 01/31/18 23:14: 25 minutes was spent in preparation for and during pronouncement of . Original Note: <Raghu Sorensen - Last Filed: 01/31/18 23:09> Pronouncement of Note - Clinical Findings Physical Exam: No Response Verbal/Painful Stimuli, Absent Peripheral Pulses{Carotid & Femoral}, Absent Heart & Breath Sounds, No Pupillary Light Reflex, No Corneal Reflex, Pupils Fixed & Dilated, Absence of Vital Signs - Pronouncement Time Time of Pronouncement of : 22:22 - Notifications Pronouncement Notifications: Family Notified, Atending Notified [employer] Notified: No - Autopsy Autopsy Requested: No - [place] [id number] <Cayla Alexander - Last Filed: 02/01/18 02:15> Pronouncement of Note - Pronouncement Time Time of Pronouncement of : 22:52 Attending/Attestation - Attestation I have personally seen and examined this patient.: Yes I have fully participated in the care of the patient.: Yes I have reviewed all pertinent clinical information: Yes Notes (Text): 02/01/18 02:13 Pt was on Hospice care. Time spent on pt was 25 mins
[2018-02-01] MEDS: Albuterol-Ipratrop 3 mg / 0.5 (3 ml) UD IH SCH (00:19)
--- NOTE | 2018-02-01 09:25 | CP.PCM.DIS ---
Provider - Provider Date of Admission: 01/27/18 11:53 Attending physician: Juan Miguel Lee MD Time Spent in preparation of Discharge (in minutes): 45 Diagnosis - Discharge Diagnosis (1) Pancreatic adenocarcinoma Status: Acute Hospital Course - Hospital Course Hospital Course: Upon Admission: Pt is a 27 yo F with pmhx metastatic pancreatic cancer to the liver, dx 10/2017, s/p biliary stent placement who presents to the hospital for hospice care. Pt was transferred from [facility]. She is currently stating that she is having some nausea, but is denying chest pain, cough, SOB, abdominal pain or dysuria. She states that she is feeling weak and tired and just wants to rest. Hospital Course: During her stay palliative care was on board from the beginning and DNR/DNI status was confirmed. They helped ensure that the pt remained comfortable. The pt was started on a pain pump and other comfort measures to ensure the pt was as comfortable as possible. There were daily conversations with the family in regards to the pts comfort status and how well the pain pump was managing the pts pain. There were also discussions with the family about the prognosis of the pt. All questions and concerns that the family members had were addressed. She began to have an increased amount of agonal breathing and pain, so the pain pump was increased as needed. Pts family was made aware of all changes and ensured that they agreed to any changes made. A call was made to the night resident team that the pt was unresponsive and time of was called at 10:52PM. Discharge Exam - Head Exam Head Exam: ATRAUMATIC, NORMAL INSPECTION, NORMOCEPHALIC Discharge Plan - Follow Up Plan Disposition: WITH WITHOUT AUTOPSY
== END 2018-01-31 23:00 | DRG 435 ==
LOC: 3RNO 01-27 11:53 → 3RSO 01-27 15:08
PROVIDERS: ADMIT Internal Medicine; ATTEND Internal Medicine
DX: C25.9 Malignant neoplasm of pancreas, unspecified (principal); A41.9 Sepsis, unspecified organism; C78.7 Secondary malignant neoplasm of liver and intrahepatic bile duct; R18.8 Other ascites; J90 Pleural effusion, not elsewhere classified; F41.9 Anxiety disorder, unspecified; K59.00 Constipation, unspecified; Z90.49 Acquired absence of other specified parts of digestive tract; Z92.21 Personal history of antineoplastic chemotherapy; Z86.718 Personal history of other venous thrombosis and embolism; Z80.0 Family history of malignant neoplasm of digestive organs; Z66 Do not resuscitate; Z51.5 Encounter for palliative care